=== PATIENT | male | born 1950 | race Caucasian/White ===

== ENCOUNTER 2020-10-31 15:01 | Emergency (ER) | payer OTHER ==
[~2020-10-31] VITALS: Ht 182.9 cm; Wt 68.0 kg
[2020-10-31 17:01] VITALS: BP 151/88
--- NOTE | 2020-10-31 17:38 | EKG ---
[place] [address] [facility] [place] [employer] [address] ELECTROCARDIOGRAM REPORT Name: AYDEN GROVER Room #: REG DANIELE Thomas#: [id number] Admission: 10/31/20 Attend Phys: Discharge: Date of : 54 Report #: [id number] [facility] ED Test Date: 2020-10-31 Test Time: 15:18:08 Pat Name: AYDEN GROVER Department: Room: Gender: M [employer] Inspector: ABDIRIZAK : 1950 Requested By: Adalid Araya Order Number: [id number] MD: Jamie Benson Measurements Intervals [place] Rate: 56 P: 38 ID: [id number] QRS: -13 QRSD: 97 T: 11 QT: 457 QTc: 442 Interpretive Statements Sinus bradycardia Otherwise normal No previous ECG available for comparison Electronically Signed On 10-31-2020 17:37:57 CDT by Jamie Benson [email or web address] <ELECTRONICALLY SIGNED> By: Jamie Benson MD, [facility] 10/31/20 1737 1518 1518 Jamie Benson MD, FACC /EPI
== END 2020-10-31 17:02 ==
LOC: ER 15:01 → EDBD 15:01 → ER 17:02
DX: G30.8 Other Alzheimer's disease (principal); Z20.822 Contact with and (suspected) exposure to COVID-19; F02.81 Dementia in other diseases classified elsewhere, unspecified severity, with behavioral disturbance